=== PATIENT | male | born 1980 | race Two or more races ===

== ENCOUNTER 2021-02-07 02:13 | Emergency (ER) | payer MEDICAID ==
[~2021-02-07] VITALS: Ht 172.7 cm; Wt 90.9 kg
[2021-02-07 03:55] LABS: ANION GAP 6 mmol/L (8-16); CALCIUM, TOTAL 9.2 mg/dL (8.8-10.5); CARBON DIOXIDE 32 mmol/L (22-29); CHLORIDE 104 mmol/L (98-107); CREATININE 0.82 mg/dL (0.60-1.30); GLOMERULAR FILTR. RATE CALC > 60 mL/min (>60); GLUCOSE,RANDOM 97 mg/dL (70-110); POTASSIUM 4.1 mmol/L (3.5-5.1); SODIUM SERUM 142 mmol/L (136-145); UREA NITROGEN, BLOOD 14 mg/dL (7-18)
[2021-02-07 04:02] LABS: ALANINE AMINOTRANSFERASE 23 U/L (12-78); ALBUMIN 3.6 g/dL (3.4-5.0); ALKALINE PHOSPHATASE 82 U/L (46-116); ASPARTATE AMINOTRANSFERASE 18 U/L (15-37); BASOPHILS % (AUTO) 0.6 % (0.0-2.0); BILIRUBIN,TOTAL 0.3 mg/dL (0.1-1.0); EOSINOPHILS % (AUTO) 1.9 % (1.0-6.0); HEMATOCRIT 41.6 % (41-53); HEMOGLOBIN 13.6 g/dL (13.5-17.5); LYMPHOCYTES # (AUTO) 1.8 K/uL (1.0-4.8); LYMPHOCYTES % (AUTO) 19.8 % (22.0-44.0); MEAN CORPUSCULAR HEMOGLOBIN 27.2 pg (26.0-34.0); MEAN CORPUSCULAR HGB CONC 32.7 G/dL (31.0-37.0); MEAN CORPUSCULAR VOLUME 83 fL (80-100); MONOCYTES # (AUTO) 0.6 K/uL (0.1-1.0); MONOCYTES % (AUTO) 6.8 % (2.0-9.0); NEUTROPHILS # (AUTO) 6.6 K/uL (1.8-7.7); NEUTROPHILS % (AUTO) 70.9 % (40.0-70.0); PLATELET COUNT (AUTO) 339 K/uL (150-450); RED CELL DISTRIBUTION WIDTH 15.1 % (11.5-14.5); TOTAL PROTEIN, SERUM 7.8 g/dL (6.4-8.2)
[2021-02-07 04:27] LABS: COVID AG,FIA SOURCE NASOPHARYNGEAL
[2021-02-07 04:45] VITALS: BP 132/86
[2021-02-07] MEDS ORDERED: ACETAMINOPHEN 500 MG TABLET PO ONE (04:45)
[2021-02-07] MEDS ORDERED: IBUPROFEN 800 MG TABLET PO ONE (04:45)
== END 2021-02-07 05:15 | disposition home or self-care (01) ==
LOC: EMS 02:15
DX: U07.1 COVID-19 (principal); R07.89 Other chest pain; F15.10 Other stimulant abuse, uncomplicated; E11.9 Type 2 diabetes mellitus without complications; I10 Essential (primary) hypertension
CPT/HCPCS: 36415; 71045; 80053; 84484; 85025; 87426; 93005; 99285; U0003

== ENCOUNTER 2021-02-09 14:39 | Emergency (ER) | payer MEDICAID ==
[~2021-02-09] VITALS: Ht 172.7 cm; Wt 100.0 kg
[2021-02-09 16:16] VITALS: BP 158/98
== END 2021-02-09 17:04 | disposition home or self-care (01) ==
LOC: EMS 14:55
DX: U07.1 COVID-19 (principal); E11.9 Type 2 diabetes mellitus without complications; I10 Essential (primary) hypertension
CPT/HCPCS: 71045; 99283